=== PATIENT | female | born 1985 | race Caucasian/White ===

== ENCOUNTER 2017-03-06 18:46 | Emergency (ER) | payer OTHER ==
[~2017-03-06] VITALS: Ht 167.6 cm; Wt 69.4 kg
[2017-03-06 18:54] VITALS: Ht 167.6 cm; Wt 69.4 kg
--- NOTE | 2017-03-06 20:05 | RADRPT ---
PROCEDURE: US right upper quadrant CLINICAL INDICATION: Abdominal pain TECHNIQUE: Multiple real-time images were acquired of the patient's right upper abdomen utilizing a high resolution transducer. COMPARISON: None available FINDINGS: Liver: Increased echogenicity is compatible with hepatic steatosis. There is no evidence of mass or ductal dilatation. The contour is normal. Normal directional blood flow is seen within the patent m ain portal vein. Hepatomegaly is present. The maximum dimension estimated at 20.5 cm . Gallbladder: Normal. No sonographic Ruiz's sign is reported. Common bile duct: Normal; 3.4 mm. There is no evidence for choledocholithiasis. Right Kidney: Normal; maximum length measured at approximately 13.6 cm. Pancreas: Visualized portions are normal. The tail is partially obscured by bowel gas. RPTAT:HJJR IMPRESSION: 1. Hepatomegaly hepatic steatosis. 2. Unremarkable gallbladder. Physician Russell Date Time Electronically viewed and signed by Physician Russell on 03/06/2017 20:04 /
[2017-03-06] MEDS ORDERED: ONDANSETRON 4 MG INJ IV STA (20:18)
[2017-03-06] MEDS ORDERED: morphine 4 MG/ML VIAL IV STA (20:18)
[2017-03-06 20:53] LABS: BASOPHIL # 0.1 10^3/ul (0.0-0.1); EOSINOPHILS # 0.1 10^3/ul (0.0-0.5); EOSINOPHILS % 1.7 % (0.0-7.0); HEMATOCRIT 33.7 % (37.0-47.0); HEMOGLOBIN 10.1 g/dl (12.0-16.0); LYMPHOCYTES # 1.5 10^3/ul (0.8-2.9); MEAN CORPUSCULAR VOLUME 70.1 fl (82.0-101.0); MEAN PLATELET VOLUME 11.1 fl (7.4-10.4); MONOCYTE # 0.8 10^3/ul (0.3-0.9); NEUTROPHIL # 4.7 10^3/ul (1.6-7.5); PLATELET COUNT 256 10^3/UL (140-415); RED BLOOD COUNT 4.81 10^6/ul (4.20-5.40); RED CELL DISTRIBUTION WIDTH 16.1 % (11.5-14.5); WHITE BLOOD COUNT 7.2 10^3/ul (4.8-10.8)
[2017-03-06 20:54] LABS: ADD UMIC YES; UR ASCORBIC ACID NEGATIVE (NEGATIVE); UR BACTERIA FEW /HPF (NONE SEEN); UR BILIRUBIN (Dip) NEGATIVE (NEGATIVE); UR BLOOD (Dip) 2+ mg/dL (NEGATIVE); UR CLARITY SLIGHTLY CLOUDY (CLEAR); UR COLOR YELLOW (YELLOW); UR GLUCOSE (Dip) NEGATIVE (NEGATIVE); UR KETONES (Dip) 1+ mg/dL (NEGATIVE); UR LEUKOCYTE ESTERASE (Dip) 1+ Leu/ul (NEGATIVE); UR NITRITE (Dip) NEGATIVE (NEGATIVE); UR RBC 4 /HPF (0-5); UR SPECIFIC GRAVITY (Dip) 1.012 (1.003-1.030); UR SQUAMOUS EPITHELIAL CELL FEW /HPF (FEW); UR TOTAL PROTEIN (Dip) 1+ mg/dl (NEGATIVE); UR UROBILINOGEN (Dip) NEGATIVE (NEGATIVE)
[2017-03-06 21:08] LABS: ALBUMIN 4.4 g/dl (3.3-4.9); ALBUMIN/GLOBULIN RATIO 1.07; BILIRUBIN,INDIRECT 0.5 mg/dl (0-1.1); BILIRUBIN,TOTAL 0.5 mg/dl (0.2-1.3); CREATININE 0.44 mg/dl (0.44-1.00); POTASSIUM 3.6 mmol/L (3.5-5.1); TOTAL PROTEIN 8.5 g/dl (6.1-8.1)
[2017-03-06] MEDS ORDERED: CEFTRIAXONE 1 GM/50 ML (PMX) 50 ML IVPB ONE (21:30)
[2017-03-06] MEDS ORDERED: TRAM-40 PO (22:11)
[2017-03-06] MEDS ORDERED: ONDA8TAB14 PO (22:11)
[2017-03-06] MEDS ORDERED: CIPR500T4 PO (22:11)
[2017-03-06] MEDS ORDERED: KETOROLAC 30 MG INJ IV STA (22:11)
--- NOTE | 2017-03-06 22:15 | ERD ---
ER Documentation Chief Complaint Chief Complaint RUQ abd pain x 4 days HPI This 31-year-old female presents with pain in the right upper mid abdomen for last 4 days. She denies fevers. She has nausea and intermittent vomiting nonbilious nonbloody. She denies urinary complaints. She was told several years ago she had gallstones. She denies any cough or shortness of breath. She denies any syncope or seizure or calf swelling. ROS All systems reviewed and are negative except as per history of present illness. Medications Home Meds Active Scripts Tramadol Hcl* (Ultram*) 50 Mg Tablet, 50 MG PO Q6H Y for PAIN, #20 TAB Prov:GALINA VENTURA MD 03/06/17 Ondansetron (Ondansetron Odt) 8 Mg Tab.rapdis, 8 MG PO Q6H Y for NAUSEA AND/OR VOMITING, #8 TAB Prov:GALINA VENTURA MD 03/06/17 Ciprofloxacin Hcl* (Ciprofloxacin Hcl*) 500 Mg Tablet, 500 MG PO BID for 10 Days , TAB Prov:GALINA VENTURA MD 03/06/17 Allergies Allergies: Coded Allergies: No Known Allergy (Unverified , 03/06/17) PMhx/Soc Medical and Surgical Hx: pt denies Medical Hx, pt denies Surgical Hx Hx Alcohol Use: No Hx Substance Use: No Hx Tobacco Use: No Smoking Status: Never smoker Physical Exam Vitals Vital Signs Date Time Temp Pulse Resp B/P Pulse Ox O2 Delivery O2 Flow Rate FiO2 03/06/17 18:54 98.6 84 20 171/87 100 Physical Exam Const: [] Alert, not ill-appearing per Head: Atraumatic Eyes: Normal Conjunctiva ENT: Normal External Ears, Nose and Mouth. Neck: Full range of motion..~ No meningismus. Resp: Clear to auscultation bilaterally Cardio: Regular rate and rhythm, no murmurs Abd: Soft, moderately tender in the right upper quadrant mid abdomen. No rebound. No tenderness at McBurney's point., non distended. Normal bowel sounds Skin: No petechiae or rashes Back: No midline or flank tenderness Ext: No cyanosis, or edema Neur: Awake and alert Psych: Normal Mood and Affect Result Diagram: 03/06/17201403/06/172014 Results 24 hrs Laboratory Tests Test 03/06/17 20:15 White Blood Count 7.210^3/ul Red Blood Count 4.8110^6/ul Hemoglobin 10.1g/dl Hematocrit 33.7% Mean Corpuscular Volume 70.1fl Mean Corpuscular Hemoglobin 21.0pg Mean Corpuscular Hemoglobin Concent 30.0g/dl Red Cell Distribution Width 16.1% Platelet Count 72538^3/UL Mean Platelet Volume 11.1fl Neutrophils % 65.0% Lymphocytes % 21.0% Monocytes % 11.0% Eosinophils % 1.7% Basophils % 1.0% Nucleated Red Blood Cells % 0.0/100WBC Neutrophils # 4.710^3/ul Lymphocytes # 1.510^3/ul Monocytes # 0.810^3/ul Eosinophils # 0.110^3/ul Basophils # 0.110^3/ul Nucleated Red Blood Cells # 0.010^3/ul Urine Color YELLOW Urine Clarity SLIGHTLY CLOUDY Urine pH 6.0 Urine Specific [place] 1.012 Urine Ketones 1+mg/dL Urine Nitrite NEGATIVEmg/dL Urine Bilirubin NEGATIVEmg/dL Urine Urobilinogen NEGATIVEmg/dL Urine Leukocyte Esterase 1+Alejandra/ul Urine Microscopic RBC 4/HPF Urine Microscopic WBC 10/HPF Urine Squamous Epithelial Cells FEW/HPF Urine Bacteria FEW/HPF Urine Hemoglobin 2+mg/dL Urine Glucose NEGATIVEmg/dL Urine Total Protein 1+mg/dl Sodium Level 141mmol/L Potassium Level 3.6mmol/L Chloride Level 98mmol/L Carbon Dioxide Level 31mmol/L Anion Gap 16 Blood Urea Nitrogen 11mg/dl Creatinine 0.44mg/dl Glucose Level 148mg/dl Calcium Level 10.0mg/dl Total Bilirubin 0.5mg/dl Direct Bilirubin 0.00mg/dl Indirect Bilirubin 0.5mg/dl Aspartate Amino Transf (AST/SGOT) 58IU/L Alanine Aminotransferase (ALT/SGPT) 72IU/L Alkaline Phosphatase 107IU/L Total Protein 8.5g/dl Albumin 4.4g/dl Globulin 4.10g/dl Albumin/Globulin Ratio 1.07 Lipase 68U/L Current Medications Medications (Trade) Dose Ordered Sig/Tnaa Route PRN Reason Start Time Stop Time Status Last Admin Dose Admin Morphine Sulfate (morphine) 4 mg ONCE STAT IV 03/06/17 20:18 03/06/17 20:19 DC 03/06/17 20:30 Ondansetron HCl 4 mg 4 mg ONCE STAT IV 03/06/17 20:18 03/06/17 20:19 DC 03/06/17 20:30 Ceftriaxone Sodium (Rocephin) 50 ml @ 100 mls/hr ONCE ONCE IVPB 03/06/17 21:30 03/06/17 21:59 DC 03/06/17 21:10 Ketorolac Tromethamine (Toradol) 30 mg ONCE STAT IV 03/06/17 22:11 03/06/17 22:12 DC Procedures/MDM Right upper quadrant ultrasound shows no gallstones or no evidence of obstruction. There is hepatic steatosis. There is microcytic anemia of 10.1 on CBC. White blood cell count is normal. CMP is normal. Urine shows leukocytes and white blood cells. HCG is negative. Chest X-ray 1V Interpreted by me: Soft Tissue: No acute abnormalities Bones: No acute abnormalities Mediastinum/Cardiac Silhouette/Lungs: [No acute abnormalities]. Impression- normal 1 view chest x-ray Patient was given morphine 4 mg IV, Zofran form of grams IV and Toradol 30 mg's IV. Patient has right upper quadrant abdominal pain of uncertain etiology. Patient's well's criteria does not suggest pulmonary embolism, and there no current signs or symptoms of acute abdomen or appendicitis. She may have pain from UTI or muscular skeletal pain. She will treated with Cipro, tramadol and Zofran and return precautions and primary care follow-up. The patient was stable with no new complaints during the ER course. Clinically, there is no current evidence to suggest meningitis, sepsis, acute abdomen, pneumonia, acute coronary syndrome, pulmonary embolism, or any other emergent condition appearing to require further evaluation or hospitalization. The patient should certainly return for any new or worsening symptoms per the aftercare instructions. They should otherwise follow-up with her primary care doctor for reevaluation this week. Departure Diagnosis: Primary Impression: UTI (urinary tract infection) Urinary tract infection type: acute cystitis Hematuria presence: without hematuria Qualified Code: N30.00 - Acute cystitis without hematuria Additional Impression: Abdominal pain Abdominal location: right upper quadrant Qualified Code: R10.11 - Right upper quadrant abdominal pain Condition: Stable Patient Instructions: Abdominal Pain, Understanding Urinary Tract Infections ( UTIs) [facility] Usted se tang hecho un examen terrence de control que le indica que no est en gia condicin que requiera tratamiento urgente en el Departamento de Emergencia. Un estudio ms profundo y el tratamiento de peguero condicin pueden esperar sin ningn riesgo hasta que usted sea atendida/o en el consultorio de peguero mdico o gia cl whitney. Es responsabilidad suya arreglar gia steh para el seguimiento del bud. MANEJO DE CONDICIONES NO URGENTES EN EL FUTURO 1) Si usted tiene un mdico de atencin primaria: Usted debera llamar a peguero mdico de atencin primaria antes de venir al departamento de emergencia. Despus de las horas de consultorio, peguero doctor o peguero asociado/a est disponible por telfono. El mdico o enfermero de daniella en el servicio telefnico puede asesorarle por herb medio para atender el problema, o bud contrario se puede programar gia seth. 2) Si usted no tiene un mdico de atencin primaria: Llame al mdico o clnica de referencia que aparece abajo eulogio las horas de consultorio para hacer gia seth para que le vean. CLINICAS: [facility] [id number] [facility] [phone] [facility] [phone] [facility] [facility] [phone] [facility] [place] [id number] [phone] [facility]. [phone] [address] Additional Instructions: tiene infecccion en orina. otro examines normal. Cheque otro vez con peguero doctor primario en el proximo santos or regresa para mas o nueva simptomas. GALINA VENTURA MD Mar 06, 2017 22:15
--- NOTE | 2017-03-06 22:42 | RADRPT ---
PROCEDURE: XR Chest. CLINICAL INDICATION: Abdominal pain. TECHNIQUE: Single frontal view of the chest was obtained COMPARISON: None FINDINGS: The heart and mediastinum are within normal limits. The lungs are clear. There is no pleural effusion or pneumothorax. The osseous structures are unremarkable. IMPRESSION: 1. No acute cardiopulmonary disease. RPTAT:AAJJ Physician Katie Date Time Electronically viewed and signed by Johnnie Donato Physician on 03/06/2017 22:42 QL/
== END 2017-03-06 22:50 | disposition home or self-care (01) ==
LOC: FTE 18:46
DX: N30.00 Acute cystitis without hematuria (principal)
CPT/HCPCS: 71010; 76705; 80053; 81001; 83690; 85025; J0696; J1885; J2270; J2405; 36415; 96365; 96375

== ENCOUNTER 2017-03-24 11:19 | Emergency (ER) | END 2017-03-24 17:45 | disposition home or self-care (01) ==

== ENCOUNTER 2017-10-18 22:10 | Emergency (ER) | END 2017-10-19 02:10 | disposition home or self-care (01) ==